=== PATIENT | female | born 1935 | race Caucasian/White ===

== ENCOUNTER → 2017-12-05 | Outpatient (CLI) | payer MEDICARE, OTHER | LOC: M.RAD 09:40 | DX: Z12.31 Encounter for screening mammogram for malignant neoplasm of breast (principal) ==

== ENCOUNTER → 2017-12-10 | Outpatient (CLI) | payer MEDICARE, OTHER | LOC: M.ULTRA 10:35 | DX: N63.10 Unspecified lump in the right breast, unspecified quadrant (principal); Z85.3 Personal history of malignant neoplasm of breast ==

== ENCOUNTER → 2018-06-09 | Outpatient (CLI) | payer MEDICARE, OTHER | LOC: M.ULTRA 10:25 | DX: N63.10 Unspecified lump in the right breast, unspecified quadrant (principal); R92.2 Inconclusive mammogram; Z85.3 Personal history of malignant neoplasm of breast ==

== ENCOUNTER 2019-03-09 09:26 | Inpatient (IN) | payer MEDICARE, OTHER ==
[~2019-03-09] VITALS: Ht 167.6 cm; Wt 73.9 kg
[2019-03-09 09:32] VITALS: BP 163/100
[2019-03-09] MEDS ORDERED: METFORMIN HCL500 MG PO (09:39)
[2019-03-09] MEDS ORDERED: FENOFIBRATE145 M1 PO (09:40)
[2019-03-09] MEDS ORDERED: VALSARTAN-HCTZ1 EAC3 PO (09:40)
[2019-03-09] MEDS ORDERED: LOPRESSOR50 PO (09:40)
[2019-03-09] MEDS ORDERED: JANTOVEN2 MG PO (09:41)
[2019-03-09] MEDS ORDERED: DIGOXIN125 MCG PO (09:41)
[2019-03-09] MEDS ORDERED: GLYBURIDE 2.52.5 MG PO (09:41)
[2019-03-09] MEDS ORDERED: LASIX 20 MG TAB20 MG PO (09:42)
[2019-03-09] MEDS ORDERED: ZOCOR40 MG PO (09:42)
[2019-03-09] MEDS ORDERED: IRON325 PO (09:42)
[2019-03-09] MEDS ORDERED: CENTRUM SILVER1 EAC2 PO (09:42)
[2019-03-09 10:10] LABS: ABSOLUTE BASOPHILS 0.1 thou/uL (0.0-0.2); ABSOLUTE EOSINOPHILS 0.2 thou/uL (0.0-0.7); ABSOLUTE NEUTROPHILS 6.7 thou/uL (1.6-8.1); BASOPHILS 0.7 %; EOSINOPHILS 1.7 %; HEMATOCRIT 34.5 % (37.0-47.0); HEMOGLOBIN 11.4 gm/dL (12.0-15.0); LYMPHOCYTES 20.2 %; MCH 29.5 pg (26.0-34.0); MCV 89.3 fL (80.0-100.0); MONOCYTES 9.7 %; MPV 11.3 fl. (7.2-11.1); NUCLEATED RBCS 0 /100WBC; PLATELET COUNT* 197 thou/uL (150-400); POLYS 67.7 %; RBC 3.86 mil/uL (4.20-5.00); RDW-CV 15.1 % (10.5-14.5); WBC 9.8 thou/uL (4.0-11.0)
[2019-03-09 10:17] LABS: CALCIUM 9.8 mg/dL (8.5-10.1); CREATININE 1.5 mg/dL (0.6-1.3)
[2019-03-09 10:21] LABS: POTASSIUM 4.6 mmol/L (3.5-5.1)
[2019-03-09 10:28] LABS: ALBUMIN 3.7 g/dL (3.4-5.0); TOTAL BILIRUBIN 0.5 mg/dL (<0.1-1.0); TOTAL PROTEIN 7.6 g/dL (6.4-8.2)
[2019-03-09 10:33] LABS: URINE BILIRUBIN NEGATIVE (Negative); URINE BLOOD NEGATIVE (Negative); URINE CLARITY CLEAR; URINE COLOR YELLOW; URINE GLUCOSE-RANDOM 3+ (Negative); URINE KETONES NEGATIVE (Negative); URINE LEUKOCYTES-REFLEX NEGATIVE (Negative); URINE NITRITE-REFLEX NEGATIVE (Negative); URINE PROTEIN NEGATIVE (Negative); URINE SPECIFIC GRAVITY 1.015 (1.005-1.030); URINE UROBILINOGEN 0.2 E.U./dl (0.2-1.0)
[2019-03-09 14:55] VITALS: BP 146/59
[2019-03-09 15:19] VITALS: BP 109/52
--- NOTE | 2019-03-09 16:09 | NUR ---
PATIENT ADMITTED TO ROOM 315 VIA BED FROM ER. PATIENT ASSISTED TO BED WITH SBA. PATIENT'S ADMISSION PROCESS COMPLETED. VITALS STABLE. PICTURE OBTAINED OF RIGHT LOWER LEG, NOTED TO HAVE 2+ EDEMA TO RIGHT LOWER LEG. WOUNDS DRY TO RLE. PATIENT DENIES PAIN. SALINE LOCK PATENT TO RIGHT WRIST. PATIENT ORIENTED TO ROOM AND ENVIRONMENT. BED ALARM PLACED. CALL LIGHT WITHIN REACH. WILL CONTINUE WITH PLAN OF CARE.
--- NOTE | 2019-03-09 19:35 | NUR ---
PATIENT HAS BEEN A/O X 4 SINCE ADMIT. PATIENT CONTINUES TO DENY PAIN. UP WITH SBA TO BS, HAS HAD GOOD URINE OUTPUT SINCE RECEIVING LASIX. BLOOD SUGARS NOTED. PATIENT'S RIGHT LEG REMAINS RED AND SWOLLEN, MEPILEX APPLIED TO OPEN AREAS. WOUND AND ID CONSULT PENDING. SALINE LOCK PATENT. FALL PRECAUTIONS IN PLACE. HOURLY ROUNDING COMPLETED. CALL LIGHT WITHIN REACH. WILL CONTINUE [facility] PLAN OF CARE.
[2019-03-09 20:00] VITALS: BP 135/55
--- NOTE | 2019-03-10 03:33 | NUR ---
ASSESSMENT: PT REMAIN ALERT AND ORIENT TIMES THREE. UP TO BSC WITH SBA,. GAIT A BIT UNSTEADY. VSS, AFEBRILE. TURN EVERY TWO HOURS AND PRN. PT REFUSES TO TURN AT TIMES. FREQUENT URINATION R/T LASIX. LARGE BM THIS SHIFT. DENIES PAIN, SOB AND N/V. SLOW PROGRESS TOWARDS DC GOALS. WILL CONTINUE TO MONITOR.
[2019-03-10 04:08] LABS: ABSOLUTE BASOPHILS 0.1 thou/uL (0.0-0.2); ABSOLUTE EOSINOPHILS 0.1 thou/uL (0.0-0.7); ABSOLUTE LYMPHOCYTES 2.9 thou/uL (0.8-5.3); ABSOLUTE MONOCYTES 1.1 thou/uL (0.0-1.2); HEMATOCRIT 33.3 % (37.0-47.0); LYMPHOCYTES 25.9 %; MCV 87.8 fL (80.0-100.0); MONOCYTES 9.7 %; NUCLEATED RBCS 0 /100WBC; PLATELET COUNT* 196 thou/uL (150-400); POLYS 62.4 %; RBC 3.79 mil/uL (4.20-5.00); RDW-CV 14.9 % (10.5-14.5); WBC 11.2 thou/uL (4.0-11.0)
[2019-03-10 04:36] LABS: CALCIUM 9.6 mg/dL (8.5-10.1); CREATININE 1.3 mg/dL (0.6-1.3); POTASSIUM 3.8 mmol/L (3.5-5.1)
[2019-03-10 04:37] LABS: INR 4.5; PROTIME 45.9 Seconds (9.20-11.50)
[2019-03-10 07:18] VITALS: BP 113/46
--- NOTE | 2019-03-10 11:15 | NUR ---
Nutrition: Consult received for supplements/cellulitis. RD ordered Jeffrey bid. Pt admitted with RLE cellulitis, 2+ edema BLE. Hx CHF, DM. 2gm Na diet. RX: Fe, warfarin, vanc, glyburide, metformin. BG 200s, albumin 3.7. Encourage good protein intake at meals. Increased nutrient needs R/T wounds AEB cellulitis and consult received for supplements. Mild risk. RECOMMEND MVI. JEFFREY BID.
--- NOTE | 2019-03-10 16:31 | NUR ---
ASSESSMENT COMPLETE. PT ALERT AND ORIENTED X4. DRESSING TO RIGHT LEG CHANGED TODAY, TUBIGRIP STARTED. PT DENIES NEED FOR PAIN MEDICATION. IV ABX GIVEN. INFECTIOUS DISEASE WITH PATIENT TODAY. COUMADIN ON HOLD FOR ELEVATED INR. PT TOLERATING MEALS AND DENIES N/V. PT IS UP STANDBY ASSIST. SEE ASSESSMENT AND VITALS FOR OTHER DETAILS. CALL LIGHT WITHIN REACH, BED ALARM ON. WILL CONTINUE PLAN OF CARE
[2019-03-10 20:25] VITALS: BP 128/92
[2019-03-11 05:23] LABS: INR 3.1; PROTIME 31.9 Seconds (9.20-11.50)
[2019-03-11 07:31] VITALS: BP 141/55
--- NOTE | 2019-03-11 07:37 | NUR ---
PATIENT SLEPT MOST OF THE NIGHT. IV VANC WAS GIVEN ORDERED. TUBIGRIP REMAINS TO RLE. WILL CONTINUE TO MONITOR.
--- NOTE | 2019-03-11 12:42 | NUR ---
WOUND CARE NOTE: CONSULT RECEIVED FOR CELLULITIS. PATIENT PRESENTS WITH PARTIAL THICKNESS LESIONS TO THE RIGHT LOWER EXTREMITY. BELIEVE THIS TO BE COMPLICATED BY DIABETES AND VENOUS STASIS. CHRONIC HEMOSIDERIN STAINING PRESENT TO BILATERAL LOWER EXTREMITIES AT [facility]. RIGHT LEG WITH MORE EDEMA THAN LEFT. RIGHT ANTERIOR LESION: PARTIAL THICKNESS ULCERATION MEASURING 7.5X7.5X0.1. RED, MOIST, FRIABLE WOUND BED. BRUCE-WOUND WITH NEW EPITHELIUM. CLEANSED WITH WOUND CLEANSER, PATTED DRY. APPLIED OPTIFOAM AG. RIGHT MEDIAL LESION: PARTIAL THICKNESS ULCERATION MEASURING 3.7X2.5X0.1. RED, MOIST, FRIABLE WOUND BED. BRUCE-WOUND WITH NEW EPITHELIUM. CLEANSED WITH WOUND CLEANSER, PATTED DRY. APPLIED OPTIFOAM AG. APPLIED LOTION TO INTACT SKIN ON BILATERAL LEGS. APPLIED DOUBLE LAYER TUBIGRIP SIZE F TO BILATERAL LEGS. EDUCATED PATIENT AND SPOUSE ON KEEPING LEGS ELEVATED TO DECREASE SWELLING, COMMUNICATED UNDERSTANDING. EDUCATED ON LETTING NURSE KNOW IF TUBIGRIP FELT TOO TIGHT, COMMUNICATED UNDERSTANDING. APPOINTMENT FOR THE WOUND CENTER MADE WITH DR. PANDEY 03/18/19 AT 1400 RECOMMEND KEEP LEGS ELEVATED TIGHT BLOOD GLUCOSE CONTROL FOLLOW UP IN WOUND CENTER UPON DISCHARGE ENCOURAGE GOOD NUTRTION/HYDRATION REMOVE AND REPLACE TUBIGRIP DAILY FOR SKIN CARES
--- NOTE | 2019-03-11 14:23 | NUR ---
SW attempted to complete assessment, pt was receiving wound care at the time. SW to continue to follow to assist with safe dc planning. Possible HH needs at dc.
--- NOTE | 2019-03-11 15:08 | NUR ---
Met with pt regarding heart failure medication education. Discussion focused primarily on metoprolol and digoxin. We reviewed rationale for therapty and importance of complying with prescribed regimen. Discussed possible side effects and potential management strategies. Left medication information sheet with patient and provided pharmacy contact information for any further questions of issues. Thank you.
--- NOTE | 2019-03-11 15:24 | 2DMMODE ---
[place] [address] 2 D/M-MODE ECHOCARDIOGRAM Name: MONIQUE PALMER Marita Room: [address] IN [facility]#: [id number] Admission: 03/09/19 Attend Phys: Bang De Paz, Discharge: Date of : 37 Date of Service: 03/11/19 1523 Report #: [id number] THIS REPORT FOR: //name// APPROVED REPORT Study performed: 03/11/2019 13:45:07 EXAM: Comprehensive 2D, Doppler, and color-flow Echocardiogram Patient Location: In-Patient Room #: [facility] Status: routine BSA: 1.83 HR: 93 bpm BP: 141/55 mmHg Rhythm: NSR Other Information Study Quality: Good Indications Congestive Heart Failure 2D Dimensions IVSd: 11.25 (7-11mm) LVOT Diam: 19.25 (18-24mm) LVDd: 44.59 mm PWd: 12.01 (7-11mm) Ascending Ao: 34.20 (22-36mm) LVDs: 14.09 (25-40mm) Aortic Root: 31.55 mm Volumes Left Atrial Volume (Systole) LA ESV Index: 37.50 mL/m2 Aortic Valve AoV Peak Dada.: 2.70 m/s AO Peak Gr.: 29.23 mmHg LVOT Max P.13 mmHg AO Mean Gr.: 15.87 mmHg LVOT Mean P.03 mmHg LVOT Max V: 1.74 m/s AO V2 VTI: 45.72 cm LVOT Mean V: 1.13 m/s PIPPA (VTI): 1.80 cm2 LVOT V1 VTI: 28.21 cm Mitral Valve MV Mean Gr.: 7.27 [place] [address] 2 D/M-MODE ECHOCARDIOGRAM Name: ESTELAMONIQUE Room: [address] IN [facility]#: [id number] Admission: 03/09/19 Attend Phys: Bang De Paz, Discharge: Date of : 37 Date of Service: 03/11/19 1523 Report #: [id number] PV Peak Dada.: 1.25 m/s PV Peak Gr.: 6.26 mmHg Tricuspid Valve RAP Estimate: 5.00 mmHg TR Peak Gr.: 41.23 mmHg RVSP: 46.00 mmHg PA Pressure: 46.00 mmHg Left Ventricle The left ventricle is normal size. There is normal LV segmental wall motion. Mild concentric left ventricular hypertrophy. Left ventricular systolic function is normal. The left ventricular ejection fraction is within the normal range. LVEF is >70%. The left ventricular diastolic function is normal. Right Ventricle Right ventricle is dilated. The right ventricular systolic function is normal. Pacemaker lead is present in the right ventricle. Atria Left atrium is mildly dilated. Right atrium is dilated. Aortic Valve Aortic valve is calcified. No aortic regurgitation is present. Mild aortic stenosis. Mitral Valve There is a mechanical mitral valve. Trace mitral regurgitation. No evidence of mitral valve stenosis. Tricuspid Valve The tricuspid valve is normal in structure. Mild tricuspid regurgitation. estimate pa pressure 55 mm Hg Pulmonic Valve The pulmonary valve is normal in structure. There is no pulmonic valvular regurgitation. Great Vessels The aortic root is normal in size. IVC is normal in size and collapses >50% with inspiration. Pericardium There is no pericardial effusion. <Conclusion> Mild concentric [place] [address] 2 D/M-MODE ECHOCARDIOGRAM Name: MONIQUE PALMER Marita Room: [address] IN .R.#: [id number] Admission: 03/09/19 Attend Phys: Bang De Paz, Discharge: Date of : 37 Date of Service: 03/11/19 1523 Report #: [id number] LVEF is >70%. Left atrium is mildly dilated. Mild aortic stenosis. There is a mechanical mitral valve. Mild tricuspid regurgitation. estimate pa pressure 55 mm Hg <ELECTRONICALLY SIGNED> By: Floyd Prieto MD, [facility] 03/11/19 1523 [id number] Floyd Prieto MD, FACC /INF
[2019-03-11 16:00] VITALS: BP 128/51
--- NOTE | 2019-03-11 16:52 | NUR ---
ASSESSMENT COMPLETE. PT ALERT AND ORIENTED X4. DENIES PAIN AND TOLERATING MEALS. PT IS UP STANDBY ASSIST TO BSC. PT GIVEN IV ABX ORDERED, VANC TROUGH WITHIN NORMAL LIMITS. COUMADIN RE STARTED, INR 3.1 TODAY. WOUND CARE DONE WITH WOUND NURSE, TUBIGRIP APPLIED TO BLE. Q2 TURN. SEE ASSESSMENT AND VITALS FOR OTHER DETAILS. CALL LIGHT WITHIN REACH, BED ALARM ON. WILL CONTINUE PLAN OF CARE.
[2019-03-11 20:00] VITALS: BP 141/60
[2019-03-12 04:25] LABS: INR 2.2; PROTIME 22.2 Seconds (9.20-11.50)
--- NOTE | 2019-03-12 05:42 | NUR ---
ASSESSMENT: PT REMAIN ALERT AND ORIENT TIMES THREE. FORGETFUL AT TIMES. UP TO BR WITH SBA. DENIES PAIN, SOB AND N/V. VSS, AFEBRILE. POSSIBLE DC TO HOME TODAY. WILL CONTINUE TO MONITOR.
[2019-03-12 08:00] VITALS: BP 149/59
[2019-03-12 09:38] VITALS: BP 149/59
--- NOTE | 2019-03-12 10:37 | CON ---
[address] [address] CONSULTATION Name: ESTELAMONIQUE Marita Room: [address] IN M.R.#: [id number] Admission: 03/09/19 Attend Phys: Bang De Paz MD Discharge: Date of : 37 Report #: [id number] THIS REPORT FOR: //name// CC: Bang De Paz [facility] DATE OF SERVICE: 03/10/2019 INFECTIOUS DISEASE CONSULTATION ATTENDING PHYSICIAN: Bnag De Paz MD REASON FOR EVALUATION: Right lower extremity skin and soft tissue infection with cellulitis and is now open wound. HISTORY OF PRESENT ILLNESS: Chart reviewed, patient examined. This is an 83-year-old, with perhaps some degree of memory issues, does have known history of previous stroke, has mitral valve replacement in 1993, on chronic anticoagulation, also with evidence of chronic venous stasis and insufficiency, dermatitis, who developed increasing swelling, in particular the right lower extremity. This was complicated by superficial bullous lesions that denuded, became increasingly inflamed, specifically reddened and swollen. She denies significant tenderness at this point, although it is not clear that she has complete recall. There is no evidence of systemic illness with fevers. She was evaluated as an outpatient and referred to the Emergency Room where she was subsequently admitted. She was placed on vancomycin. She does note that she does have compression stockings, which she has not been wearing. Denies pulmonary or gastrointestinal related complaints. ALLERGIES: ADHESIVE TAPE. CURRENT MEDICATIONS: Include ferrous sulfate, digoxin, warfarin, glyburide, pantoprazole, vancomycin, metoprolol, enoxaparin, metformin, p.r.n. analgesics and antiemetics and she received some Lasix as well. PAST MEDICAL HISTORY: As described above, mitral valve replacement. She does have a pacemaker, previous stroke, diabetes mellitus type 2, non-insulin requiring; hypertension, elevated cholesterol, previous hysterectomy, umbilical hernia repair and she had a left breast lumpectomy. SOCIAL HISTORY: Nonsmoker, no ethanol, no illicit drug use. FAMILY HISTORY: Noncontributory. REVIEW OF SYSTEMS: Otherwise unremarkable 10-point review of systems with the exception [place] [address] CONSULTATION Name: MONIQUE PALMER Room: [address]#: [id number] Admission: 03/09/19 Attend Phys: Bang De Paz MD Discharge: Date of : 37 Report #: [id number] PHYSICAL EXAMINATION: GENERAL: She is pleasant, alert, cooperative. She appears somewhat chronically ill, mildly undernourished. She was in mild distress. VITAL SIGNS: Temperature 98.6, pulse 61, respirations 17, blood pressure is 113/46. SKIN: Warm, dry. 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 HEENT: Normocephalic. Extraocular muscles intact. NECK: Supple. LUNGS: Generally clear to auscultation. HEART: Regular rate. Does have a systolic murmur. ABDOMEN: Soft, nontender, nondistended. EXTREMITIES: Bilateral lower extremities have chronic changes, right asymmetrical increased swelling over the left. She has got 2 areas of superficial ulceration that have moderate degree of debris, primarily bloody. She is not exquisitely tender. GENITOURINARY: Deferred. RECTAL: Deferred. LABORATORY DATA: Blood cultures sterile thus far. PT 45.9, INR 4.5. Electrolytes: Sodium 139, potassium 3.8, chloride 102, bicarbonate is 28, anion gap of 9, BUN and creatinine 29 and 1.3, estimated GFR of 39. CBC: White count 11.2, H and H 11.0 and 33.3, platelets of 196. Liver functions unremarkable. Albumin 3.7, total protein 7.6. Estimated GFR of 33. Urinalysis 3+ glucose, otherwise unremarkable. Lactic acid of 2.8 initially, repeat serially was 2.5, 1.9. ASSESSMENT: Right lower extremity inflammatory eruption, likely multifactorial. I think there is a component of skin and soft tissue infection. Continue wound care. Elevation. We will add compression. Continue the parenteral therapy. At this point, she is anxious to go home. We will discuss with Dr. De Paz. Discussed with the patient's spouse. <ELECTRONICALLY SIGNED> By: Abhishek Mitchell MD 03/12/19 1037 [id number] Mitchell MD /nt
[2019-03-12] MEDS ORDERED: MINOCYCLINE HC100 M2 PO (13:21)
== END 2019-03-12 14:34 | disposition home or self-care (01) | DRG 602 ==
LOC: M.ERS 09:26 → M.3W 10:57 → M.TBA-ER 10:57 → M.3W 15:05
PROVIDERS: Emergency Medicine; ADMIT Internal Medicine
DX: L03.115 Cellulitis of right lower limb (principal); I50.33 Acute on chronic diastolic (congestive) heart failure; I38 Endocarditis, valve unspecified; L97.919 Non-pressure chronic ulcer of unspecified part of right lower leg with unspecified severity; I11.0 Hypertensive heart disease with heart failure; E11.9 Type 2 diabetes mellitus without complications; Z95.0 Presence of cardiac pacemaker; Z86.73 Personal history of transient ischemic attack (TIA), and cerebral infarction without residual deficits; Z90.710 Acquired absence of both cervix and uterus; Z95.2 Presence of prosthetic heart valve

== ENCOUNTER → 2019-03-18 | Outpatient (CLI) | payer MEDICARE, OTHER ==
[~2019-03-18] MED LIST: CENTRUM SILVER1 EAC2 PO; DIGOXIN125 MCG PO; FENOFIBRATE145 M1 PO; GLYBURIDE 2.52.5 MG PO; IRON325 PO; JANTOVEN2 MG PO; LASIX 20 MG TAB20 MG PO; LOPRESSOR50 PO; METFORMIN HCL500 MG PO; MINOCYCLINE HC100 M2 PO; VALSARTAN-HCTZ1 EAC3 PO; ZOCOR40 MG PO
--- NOTE | 2019-03-20 07:08 | CON ---
[address] [address] CONSULTATION Name: MONIQUE PALMER Room: [facility] NARDA Kaminski#: [id number] Admission: 03/18/19 Attend Phys: Siddharth Segovia DPM Discharge: Date of : 37 Report #: [id number] THIS REPORT FOR: //name// CC: Aurelio Segovia DATE OF SERVICE: 03/18/2019 ATTENDING PHYSICIAN: Dr. Siddharth Segovia. She is here for a followup right lower extremity skin and soft tissue infection with cellulitis, chronic venous stasis insufficiency. Chart reviewed, patient examined. An 83-year-old who was actually hospitalized with significant inflammatory eruption involving the right lower extremity. This was felt to have a component of skin and soft tissue infection, initially received parenteral therapy with vancomycin. This was transitioned to minocycline. She has actually shown improvement since her discharge. She denies any pain associated with left lower limb. She has not been systemically ill. Denies any fevers or chills. She has been utilizing compression and the edema is much improved actually bilaterally. Right lower extremity skin and soft tissue infection with cellulitis. We will continue the minocycline. She is due to take a few more days. We will see her in followup off the antibiotics in 1 week. Continue compression, elevation as required. <ELECTRONICALLY SIGNED> By: Abhishek Mitchell MD 03/20/19 0708 0901 Laura Mitchell MD /thaddeus
== END ==
LOC: M.WC 09:35
DX: E11.622 Type 2 diabetes mellitus with other skin ulcer (principal); L97.811 Non-pressure chronic ulcer of other part of right lower leg limited to breakdown of skin; E78.00 Pure hypercholesterolemia, unspecified; I87.2 Venous insufficiency (chronic) (peripheral); I11.0 Hypertensive heart disease with heart failure; I50.9 Heart failure, unspecified; Z86.73 Personal history of transient ischemic attack (TIA), and cerebral infarction without residual deficits; Z87.891 Personal history of nicotine dependence; Z90.710 Acquired absence of both cervix and uterus; Z95.0 Presence of cardiac pacemaker

== ENCOUNTER → 2019-03-25 | Outpatient (CLI) | payer MEDICARE, OTHER ==
--- NOTE | 2019-03-27 16:40 | CON ---
[address] [address] CONSULTATION Name: MONIQUE PALMER Room: [facility] NARDA Kaminski#: [id number] Admission: 03/25/19 Attend Phys: Siddharth Segovia DPM Discharge: Date of : 37 Report #: [id number] THIS REPORT FOR: //name// CC: Aurelio Segovia DATE OF SERVICE: 03/25/2019 ATTENDING PHYSICIAN: Siddharth Segovia DPM. The patient returns today in followup for skin and soft tissue involving her right leg, complicated by some superficial ulcers. She generally has been feeling well. She denies any pain. She has completed prescribed course of systemic antibiotics at this point. On evaluation, felt to be healed. Does have some superficial eschar. Right leg skin and soft tissue infection. At this point, I would not extend the antibiotics. Continue compression as prescribed. We will be available as needed. <ELECTRONICALLY SIGNED> By: Abhishek Mitchell MD 03/27/19 1640 [id number] Mitchell MD /nt
== END ==
LOC: M.WC 04:51
DX: E11.622 Type 2 diabetes mellitus with other skin ulcer (principal); L97.818 Non-pressure chronic ulcer of other part of right lower leg with other specified severity; I87.2 Venous insufficiency (chronic) (peripheral); E11.51 Type 2 diabetes mellitus with diabetic peripheral angiopathy without gangrene; E78.00 Pure hypercholesterolemia, unspecified; I11.0 Hypertensive heart disease with heart failure; I50.9 Heart failure, unspecified; Z86.73 Personal history of transient ischemic attack (TIA), and cerebral infarction without residual deficits; Z90.710 Acquired absence of both cervix and uterus; Z95.0 Presence of cardiac pacemaker; Z87.891 Personal history of nicotine dependence

== ENCOUNTER → 2019-06-23 | Outpatient (CLI) | payer MEDICARE, OTHER | LOC: M.RAD 10:11 | DX: Z12.31 Encounter for screening mammogram for malignant neoplasm of breast (principal) ==

== ENCOUNTER → 2021-02-03 | Outpatient (CLI) | payer MEDICARE, OTHER | LOC: M.RAD 09:54 | PROVIDERS: ATTEND Family Medicine | DX: Z12.31 Encounter for screening mammogram for malignant neoplasm of breast (principal); N64.89 Other specified disorders of breast ==